=== PATIENT | female | born 1985 | race Caucasian/White ===

== ENCOUNTER 2016-10-30 04:11 | Emergency (ER) | payer OTHER ==
[~2016-10-30] VITALS: Ht 157.5 cm; Wt 83.0 kg
[2016-10-30 04:20] VITALS: Ht 157.5 cm; Wt 83.0 kg
[2016-10-30] MEDS ORDERED: IBUP-1542 PO (04:46)
[2016-10-30] MEDS ORDERED: SULF1TAB31 PO (04:46)
[2016-10-30] MEDS ORDERED: CEPH-443 PO (04:46)
[2016-10-30] MEDS ORDERED: LIDOCAINE 1% (MDV) 20 ML INJ SC ONE (05:00)
--- NOTE | 2016-10-30 05:05 | ERD ---
ER Documentation Chief Complaint Date/Time DATE: 10/30/16 TIME: 04:47 Chief Complaint c/o left arm abcess x 3 days. Injected meth. HPI Patient is a 31-year-old female with history of IV drug use presents to the ED for concerns of an abscess to her right upper arm. Patient states she did inject meth to the affected site 3 days ago. Patient denies any fevers or chills. Patient has normal range of motion of her elbow, wrist. Patient does report icing the affected area. Patient denies any trauma or falls. Patient states her last tetanus shot was in May of this year. ROS All systems reviewed and are negative except as per history of present illness. Medications Home Meds Active Scripts Sulfamethoxazole/Trimethoprim* (Bactrim Ds* Tablet) 1 Each Tablet, 1 TAB PO BID , #20 TAB Prov:KIMI SMART PA-C 10/30/16 Cephalexin* (Keflex*) 500 Mg Capsule, 500 MG PO QID for 10 Days, CAP Prov:KIMI SMART PA-C 10/30/16 Ibuprofen* (Motrin*) 600 Mg Tab, 600 MG PO Q6, #20 TAB Prov:KIMI SMART PA-C 10/30/16 Allergies Allergies: Coded Allergies: No Known Allergy (Unverified , 10/30/16) PMhx/Soc Hx Alcohol Use: Yes Hx Substance Use: Yes (IV drug use, meth) Hx Tobacco Use: Yes Physical Exam Vitals Vital Signs Date Time Temp Pulse Resp B/P Pulse Ox O2 Delivery O2 Flow Rate FiO2 10/30/16 04:20 98.2 86 18 128/75 98 Physical Exam GENERAL: Well-developed, well-nourished female. Appears in no acute distress. HEAD: Normocephalic, atraumatic. EYES: Pupils are equally reactive bilaterally. EOMs grossly intact. No conjunctival erythema. ENT: Moist mucous membranes. No uvula deviation. No kissing tonsils. NECK: Supple. No meningismus. Normal range of motion of the neck. LUNG: Clear to auscultation bilaterally. No rhonchi, wheezing, rales or coarse breath sounds. HEART: Regular rate and rhythm. No murmurs, rubs or gallops. EXTREMITIES: Equal pulses bilaterally. No peripheral clubbing, cyanosis or edema. No unilateral leg swelling. NEUROLOGIC: Alert and oriented. Moving all four extremities without any difficulty. Normal speech. Steady gait. SKIN: Normal color. Warm and dry. No rashes or lesions. Large 6 cm circular abscess noted to be 3 cm above the left antecubital fossa. Erythematous and tender to touch. +Surrounding erythema. +Induration and fluctuance. Results 24 hrs Current Medications Medications (Trade) Dose Ordered Sig/Zuly Route PRN Reason Start Time Stop Time Status Last Admin Dose Admin Lidocaine (Xylocaine 1% (Mdv) 20 ml) 20 ml ONCE ONCE SC 10/30/16 05:00 10/30/16 05:01 DC Acetaminophen/ Hydrocodone Bitart (Virgilina (5/325)) 1 tab ONCE ONCE PO 10/30/16 05:30 10/30/16 05:31 DC 10/30/16 05:11 Cephalexin (Keflex) 500 mg ONCE ONCE PO 10/30/16 05:30 10/30/16 05:31 DC 10/30/16 05:11 Trimethoprim/ Sulfamethoxazole (Bactrim (Ds)) 1 tab ONCE ONCE PO 10/30/16 05:30 10/30/16 05:31 DC 10/30/16 05:11 Procedures/MDM ED COURSE: The patient was stable throughout ED course. I kept the patient and/or family informed of laboratory and diagnostic imaging results throughout the ED course. DIAGNOSTIC IMAGING: Read by radiologist. DIAGNOSTIC IMAGING REPORT Patient: KAREN WERNER : 1985 Age: 31 Sex: F MR #: [id number] DOS: 10/30/16 0443 Ordering MD: KIMI SMART PA-C Location: [facility] Room/Bed: PROCEDURE: XR Elbow. CLINICAL INDICATION: Right elbow pain with possible foreign body TECHNIQUE: 3 views of the right elbow are available for review COMPARISON: None available FINDINGS: The osseous structures demonstrate normal alignment and mineralization. No acute fracture or dislocation is identified. There is no posterior fat pad sign identified to indicate presence of a joint effusion. There is focal soft tissue edema along the superior margin of the antecubital fossa. No radiopaque foreign body is identified. IMPRESSION: No radiopaque foreign body identified. RPTAT: HH .Alisa Boudreaux MD, Date Time Electronically viewed and signed by .Alisa Boudreaux MD, on 10/30/2016 05 :38 .G/ CC: KIMI SMART PA-C PROCEDURES: INCISION AND DRAINAGE: The patient was verbally consented prior to procedure. Patient was explained the risks, benefits and alternatives to this procedure. Location: left arm Abscess size: 6 cm, circular Anesthesia: local 1% lidocaine, 5 cc Preparation: The area was prepped in a sterile fashion using betadine x3 cleanses. A sterile field was prepared. Technique: A sterile 11 blade scalpel was used to make a 1 cm linear incision into the abscess. Procedure: A midline abscess incision was made using a sterile scalpel in a linear fashion. Purulent material was expressed with direct pressure. Blunt probing was used to break up loculations. Bleeding was minimal. Packing: half iodoform packing was placed into the wound. The patient tolerated the procedure well with no complications. The wound was dressed in sterile gauze. The patient was neurovascularly intact post- procedure. Post-procedural wound care was discussed with the patient. MEDICATIONS GIVEN: Virgilina, Keflex, Bactrim Patient tolerated medication well with no adverse reactions. Patient reported improvement in pain. MEDICAL DECISION MAKING: This is a 31-year-old female presents with concerns of abscess to her left upper arm after injecting it with meth. Patient is an IV drug user. Vital signs were reviewed. Patient was afebrile. Patient's wound was approximately 3 cm above the left antecubital fossa. X-ray imaging was obtained. No retained foreign bodies were noted. An incision and drainage was conducted. See procedure note. Copious purulent discharge was expressed from the abscess site. Tetanus is up-to-date. At this time, patient's presentation is most consistent with abscess. Low suspicion for retained foreign body, deep space infection, neurovascular injury, tendon injury, fracture or dislocation. PRESCRIPTIONS: Bactrim, Keflex, Ibuprofen DISCHARGE: At this time, the patient is stable for discharge and outpatient management. Warm compresses to the affected area. Post-procedural wound care was discussed with the patient. The patient has been advised to return to the ER in 2 days for a wound check. Patient advised to complete full course of antibiotics. I have instructed the patient to promptly return to the ER for any new or worsening symptoms including increasing pain, fever, warmth, redness or swelling. The patient and/or family expressed understanding of and agreement with this plan. All questions were answered. Home care instructions were provided. Departure Diagnosis: Primary Impression: Abscess Condition: Stable Patient Instructions: Abscess, Incision And Drainage Referrals: [facility] YOU HAVE RECEIVED A MEDICAL SCREENING EXAM AND THE RESULTS INDICATE THAT YOU DO NOT HAVE A CONDITION THAT REQUIRES URGENT TREATMENT IN THE EMERGENCY DEPARTMENT. FURTHER EVALUATION AND TREATMENT OF YOUR CONDITION CAN WAIT UNTIL YOU ARE SEEN IN YOUR DOCTORS OFFICE WITHIN THE NEXT 1-2 DAYS. IT IS YOUR RESPONSIBILITY TO MAKE AN APPOINTMENT FOR FOLOW-UP CARE. IF YOU HAVE A PRIMARY DOCTOR --you should call your primary doctor and schedule an appointment IF YOU DO NOT HAVE A PRIMARY DOCTOR YOU CAN CALL OUR PHYSICIAN REFERRAL HOTLINE AT IF YOU CAN NOT AFFORD TO SEE A PHYSICIAN YOU CAN CHOSE FROM THE FOLLOWING [facility] [address] [facility]. [facility] [address] [facility]. [facility] [address] [facility] [facility] [address] [facility] [facility] [address] [facility]. [facility]. [address] [facility]. [facility] YOU HAVE RECEIVED A MEDICAL SCREENING EXAM AND THE RESULTS INDICATE THAT YOU DO NOT HAVE A CONDITION THAT REQUIRES URGENT TREATMENT IN THE EMERGENCY DEPARTMENT. FURTHER EVALUATION AND TREATMENT OF YOUR CONDITION CAN WAIT UNTIL YOU ARE SEEN IN YOUR DOCTORS OFFICE WITHIN THE NEXT 1-2 DAYS. IT IS YOUR RESPONSIBILITY TO MAKE AN APPOINTMENT FOR FOLOW-UP CARE. IF YOU HAVE A PRIMARY DOCTOR --you should call your primary doctor and schedule and appointment IF YOU DO NOT HAVE A PRIMARY DOCTOR YOU CAN CALL OUR PHYSICIAN REFERRAL HOTLINE AT . IF YOU CAN NOT AFFORD TO SEE A PHYSICIAN YOU CAN CHOSE FROM THE FOLLOWING [facility]: [facility] [address] [place] [address] [facility] [address] [place] [address] [facility] [address] [place] [address] Additional Instructions: Call your primary care doctor TOMORROW for an appointment during the next 1-2 days.See the doctor sooner or return here if your condition worsens before your appointment time. Retutn in 2 days for wound recheck. Take full course of antibiotics. Return sooner for any new or worsening symptoms including fevers, chills, worsening redness, swelling or pain. KIMI SMART PA-C Oct 30, 2016 05:04
[2016-10-30] MEDS ORDERED: CEPHALEXIN 500 MG CAP PO ONE (05:30)
[2016-10-30] MEDS ORDERED: HYDROCODONE/APAP (5/325) TAB PO ONE (05:30)
[2016-10-30] MEDS ORDERED: TRIMETHOPRIM/SULFAMETHOX (DS) TAB PO ONE (05:30)
--- NOTE | 2016-10-30 05:39 | RADRPT ---
PROCEDURE: XR Elbow. CLINICAL INDICATION: Right elbow pain with possible foreign body TECHNIQUE: 3 views of the right elbow are available for review COMPARISON: None available FINDINGS: The osseous structures demonstrate normal alignment and mineralization. No acute fracture or disloc ation is identified. There is no posterior fat pad sign identified to indicate presence of a joint effusion. There is focal soft tissue edema along the superior margin of the antecubital fossa. No radiopaque foreign body is identified. IMPRESSION: No radiopaque foreign body identified. RPTAT: HH .Alisa Boudreaux MD, MD Date Time Electronically viewed and signed by .Alisa Boudreaux MD, on 10/30/2016 05:38 .G/
[2016-10-30 05:58] VITALS: BP 109/70; PULSE 79; RESP 17; TEMP 97.7
== END 2016-10-30 05:58 | disposition home or self-care (01) ==
LOC: FTE 04:11
DX: L02.414 Cutaneous abscess of left upper limb (principal); Z87.891 Personal history of nicotine dependence
CPT/HCPCS: 10061; 73080; Z7502; Z7610

== ENCOUNTER 2016-11-02 16:09 | Emergency (ER) | payer OTHER ==
[~2016-11-02] VITALS: Ht 160 cm; Wt 84.0 kg
[~2016-11-02 16:09] MED LIST: CEPH-443 PO; IBUP-1542 PO; SULF1TAB31 PO
[2016-11-02 16:19] VITALS: Ht 160 cm; Wt 84.0 kg
--- NOTE | 2016-11-02 17:26 | ERD ---
ER Documentation Chief Complaint Date/Time DATE: 11/02/16 TIME: 17:20 Chief Complaint LEFT UPPER ARM WOUND THAT NEEDS WOUND CARE HPI Patient is a 31-year-old female with history of IV drug use presents to the ED for a wound check to her left upper arm. Patient had an incision and drainage done by myself on 10-30-16. Patient denies any fevers, chills, nausea, vomiting , pain, worsening swelling, worsening redness or LOC. Patient is taking antibiotics as prescribed. Patient has been doing wound changes. Patient did not pull out the packing. Patient otherwise has no complaints at this time. Patient denies any new IV drug use since last visit. ROS All systems reviewed and are negative except as per history of present illness. Medications Home Meds Active Scripts Sulfamethoxazole/Trimethoprim* (Bactrim Ds* Tablet) 1 Each Tablet, 1 TAB PO BID , #20 TAB Prov:KIMI SMART PA-C 10/30/16 Cephalexin* (Keflex*) 500 Mg Capsule, 500 MG PO QID for 10 Days, CAP Prov:KIMI SMART PA-C 10/30/16 Ibuprofen* (Motrin*) 600 Mg Tab, 600 MG PO Q6, #20 TAB Prov:KIMI SMART PA-C 10/30/16 Allergies Allergies: Coded Allergies: No Known Allergy (Unverified , 10/30/16) PMhx/Soc History of Surgery: No Anesthesia Reaction: No Hx Neurological Disorder: No Hx Respiratory Disorders: No Hx Cardiac Disorders: No Hx Psychiatric Problems: No Hx Miscellaneous Medical Probl: No Hx Alcohol Use: Yes Hx Substance Use: Yes (IV drug use, meth) Hx Tobacco Use: Yes Smoking Status: Never smoker FmHx Family History: No diabetes Physical Exam Vitals Vital Signs Date Time Temp Pulse Resp B/P Pulse Ox O2 Delivery O2 Flow Rate FiO2 11/02/16 16:19 98.1 84 18 131/62 99 Physical Exam GENERAL: Well-developed, well-nourished female. Appears in no acute distress. HEAD: Normocephalic, atraumatic. EYES: Pupils are equally reactive bilaterally. EOMs grossly intact. No conjunctival erythema. ENT: Moist mucous membranes. No uvula deviation. No kissing tonsils. NECK: Supple. No meningismus. Normal range of motion of the neck. LUNG: Clear to auscultation bilaterally. No rhonchi, wheezing, rales or coarse breath sounds. HEART: Regular rate and rhythm. No murmurs, rubs or gallops. EXTREMITIES: Equal pulses bilaterally. No peripheral clubbing, cyanosis or edema. No unilateral leg swelling. Normal range of motion at the elbow, shoulder of left upper extremity. NEUROLOGIC: Alert and oriented. Moving all four extremities without any difficulty. Normal speech. Steady gait. SKIN: Normal color. Warm and dry. Left arm abscess noted. Packing in place. Minimal drainage. Minimal erythema, improved, no swelling, no warmth. No lymphatic streaking. Procedures/MDM MEDICAL DECISION MAKING: This is a 31-year-old female with a history of IV drug use who presents to the ED for wound check of an abscess on her left upper arm. Vital signs were reviewed. Patient is afebrile. Packing was removed. The wound appears to be healing well with no concerns of acute infection at this time. Patient states dressings were changed. Tetanus is up-to-date. Post-procedural wound care was discussed with the patient. At the time, patient's presentation most consistent with wound check for abscess. Low suspicion for cellulitis, deep space infection, ligament or tendon injury, neurovascular injury. PRESCRIPTIONS: Continue to take antibiotics as prescribed. Complete full course. DISCHARGE: At this time, the patient is stable for discharge and outpatient management. Patient was advised to continue antibiotics as prescribed. Patient advised to conduct warm compresses to the affected area 3-4 times per day. Post- procedural wound care was discussed with the patient. I have instructed the patient to promptly return to the ER for any new or worsening symptoms including increasing pain, fever, warmth, redness or swelling. The patient and/ or family expressed understanding of and agreement with this plan. All questions were answered. Home care instructions were provided. Departure Diagnosis: Primary Impression: Encounter for wound re-check Condition: Stable Patient Instructions: Abscess, Antiobiotic Treatment Only Referrals: [facility] (PCP) Additional Instructions: Call your primary care doctor TOMORROW for an appointment during the next 1-2 days.See the doctor sooner or return here if your condition worsens before your appointment time. Continue antibiotics as prescribed. Apply warm compresses to the affected area. KIMI SMART PA-C Nov 02, 2016 17:25
== END 2016-11-02 17:37 | disposition home or self-care (01) ==
LOC: FTE 16:09
DX: Z48.01 Encounter for change or removal of surgical wound dressing (principal); Z87.891 Personal history of nicotine dependence
CPT/HCPCS: 99281

== ENCOUNTER 2017-08-18 17:46 | Emergency (ER) | END 2017-08-19 00:21 | disposition home or self-care (01) ==

== ENCOUNTER 2018-04-01 17:34 | Emergency (ER) | END 2018-04-01 18:02 | disposition left against medical advice (07) ==